=== PATIENT | female | born 1985 | race Two or more races ===

== ENCOUNTER 2019-09-09 06:52 | Inpatient (IN) | payer OTHER ==
[~2019-09-09] VITALS: Ht 157.5 cm; Wt 88.6 kg
[~2019-09-09 06:52] MED LIST: PNV11TAB PO
[2019-09-09] MEDS ORDERED: OXYTOCIN 30U/ 0.9% NaCL 500ML 500 ML IV ONE (08:43)
[2019-09-09] MEDS ORDERED: LACTATED RINGERS 1,000 ML IV SCH (08:43)
[2019-09-09] MEDS ORDERED: D5%-LACTATED RINGERS 1,000 ML IV SCH (08:43)
[2019-09-09] MEDS ORDERED: TERBUTALINE 1 MG/ML, 1ML SQ PRN (09:00)
[2019-09-09] MEDS ORDERED: SODIUM CHLORIDE FLUSH 10ML SYR IVF PRN (09:00)
[2019-09-09] MEDS ORDERED: FENTANYL PF 100 MCG/2ML IVPush PRN (09:00)
[2019-09-09] MEDS ORDERED: TERBUTALINE 1 MG/ML, 1ML IVPush PRN (09:00)
[2019-09-09] MEDS ORDERED: FENTANYL PF 100 MCG/2ML IV PRN (09:00)
[2019-09-09] MEDS ORDERED: TERBUTALINE 1 MG/ML, 1ML ONE (10:19)
[2019-09-09] MEDS ORDERED: LIDOCAINE 1%, 20ML ONE (10:19)
[2019-09-09] MEDS ORDERED: MISOPROSTOL 200 MCG TABLET ONE (10:19)
[2019-09-09] MEDS ORDERED: OXYTOCIN 10 UNITS/ML, 1ML ONE (10:19)
[2019-09-09] MEDS ORDERED: NEWBORN KIT ONE (10:19)
[2019-09-10] MEDS ORDERED: OXYTOCIN 30U/ 0.9% NaCL 500ML 500 ML IV PRN (01:04)
[2019-09-10] MEDS ORDERED: OXYTOCIN 30U/ 0.9% NaCL 500ML 500 ML ONE ×2 (01:11→19:26)
[2019-09-10] MEDS ORDERED: ONDANSETRON 2MG/ML, 2ML IVPush PRN (02:00)
[2019-09-10] MEDS ORDERED: FENTANYL/BUPIV./NS/PF 250 ML EPIDCONT SCH ×2 (05:29→06:23)
[2019-09-10 05:54] LABS: BASOPHILS # (AUTO) 0.04 x10^3/uL (0-0.1); BASOPHILS % (AUTO) 0 % (0-1); EOSINOPHILS # (AUTO) 0.03 x10^3/uL (0-0.4); EOSINOPHILS % (AUTO) 0 % (1-7); LYMPHOCYTES # (AUTO) 1.57 x10^3/uL (1-3.4); LYMPHOCYTES % (AUTO) 15 % (22-44); MD NO; MEAN CORPUSCULAR HEMOGLOBIN 23.9 pg (27.0-34.8); MEAN CORPUSCULAR VOLUME 74.8 fL (80-100); MEAN PLATELET VOLUME 10.5 fL (7.4-10.4); MONOCYTES # (AUTO) 0.44 x10^3/uL (0.2-0.8); MONOCYTES % (AUTO) 4 % (2-9); NEUTROPHILS # (AUTO) 8.81 x10^3/uL (1.8-6.8); NEUTROPHILS % (AUTO) 81 % (42-75); PLATELET COUNT 206 x10^3/uL (130-400); RED BLOOD COUNT 4.44 x10^6/uL (3.82-5.3); RED CELL DISTRIBUTION WIDTH 15.7 % (9.6-15.2)
[2019-09-10] MEDS ORDERED: FENTANYL PF 100 MCG/2ML ONE ×3 (06:18→16:24)
[2019-09-10] MEDS ORDERED: BUPIVACAINE 0.25% ONE ×3 (06:25→16:24)
[2019-09-10] MEDS ORDERED: NALOXONE 0.4 MG/ML, 1ML IVPush PRN (06:30)
[2019-09-10] MEDS ORDERED: LACTATED RINGERS 1,000 ML IVBOLUS PRN (06:30)
[2019-09-10] MEDS ORDERED: EPHEDRINE 50 MG/ML, 1ML IVPush PRN (06:30)
[2019-09-10] MEDS ORDERED: MISOPROSTOL 200 MCG TABLET PR PRN (19:00)
[2019-09-10] MEDS ORDERED: ACETAMINOPHEN 325 MG TABLET PO PRN (19:00)
[2019-09-10] MEDS ORDERED: SIMETHICONE 80 MG CHEW TAB PO PRN (19:00)
[2019-09-10] MEDS ORDERED: DOCUSATE 100 MG CAPSULE PO PRN (19:00)
[2019-09-10] MEDS ORDERED: HYDROcodone/APAP 5/325 TABLET PO PRN ×2 (19:00)
[2019-09-10] MEDS ORDERED: METHYLERGONOVINE 0.2 MG/ML IM PRN (19:00)
[2019-09-10] MEDS ORDERED: ONDANSETRON 2MG/ML, 2ML IV PRN (19:00)
[2019-09-10] MEDS ORDERED: IBUPROFEN 600 MG TABLET PO PRN (19:00)
[2019-09-10] MEDS ORDERED: CARBOPROST TROMETHAMINE 250 MCG/ML, 1ML IM PRN (19:00)
[2019-09-10] MEDS ORDERED: OXYTOCIN 10 UNITS/ML, 1ML IM PRN (19:00)
[2019-09-10] MEDS ORDERED: BISACODYL 10 MG SUPP PR PRN (19:00)
[2019-09-10] MEDS: OXYTOCIN 30U/ 0.9% NaCL 500ML 500 ML IV SCH (21:15)
[2019-09-10 21:16] VITALS: BP 110/72
[2019-09-10] MEDS: LACTATED RINGERS 1,000 ML IV SCH (22:23)
[2019-09-11 01:30] VITALS: BP 94/60
[2019-09-11] MEDS: OXYTOCIN 30U/ 0.9% NaCL 500ML 500 ML IV SCH ×3 (04:48→22:19)
[2019-09-11 04:50] VITALS: BP 97/64
[2019-09-11] MEDS: LACTATED RINGERS 1,000 ML IV SCH ×3 (06:23→22:19)
[2019-09-11 06:24] LABS: BASOPHILS # (AUTO) 0.03 x10^3/uL (0-0.1); BASOPHILS % (AUTO) 0 % (0-1); EOSINOPHILS # (AUTO) 0.06 x10^3/uL (0-0.4); EOSINOPHILS % (AUTO) 0 % (1-7); LYMPHOCYTES # (AUTO) 1.78 x10^3/uL (1-3.4); LYMPHOCYTES % (AUTO) 11 % (22-44); MD NO; MEAN CORPUSCULAR HEMOGLOBIN 23.9 pg (27.0-34.8); MEAN CORPUSCULAR HGB CONC 31.9 g/dL (32.4-35.8); MEAN CORPUSCULAR VOLUME 74.9 fL (80-100); MEAN PLATELET VOLUME 10.4 fL (7.4-10.4); MONOCYTES # (AUTO) 0.98 x10^3/uL (0.2-0.8); MONOCYTES % (AUTO) 6 % (2-9); NEUTROPHILS # (AUTO) 12.77 x10^3/uL (1.8-6.8); NEUTROPHILS % (AUTO) 82 % (42-75); PLATELET COUNT 171 x10^3/uL (130-400); RED BLOOD COUNT 4.14 x10^6/uL (3.82-5.3); RED CELL DISTRIBUTION WIDTH 15.9 % (9.6-15.2)
[2019-09-11 07:20] VITALS: BP 97/62
[2019-09-11] MEDS: PRENATAL VIT/IRON/FA 1 EACH TABLET PO SCH (09:55)
[2019-09-11] MEDS ORDERED: RHOGAM FROM BLOOD BANK 1 NOTE EA IM/IV ONE (11:30)
[2019-09-11 12:10] VITALS: BP 111/70
[2019-09-11 16:25] VITALS: BP 111/67
[2019-09-11 20:30] VITALS: BP 105/55
[2019-09-12] MEDS: LACTATED RINGERS 1,000 ML IV SCH (04:29)
[2019-09-12 07:50] VITALS: BP 102/66
[2019-09-12] MEDS: PRENATAL VIT/IRON/FA 1 EACH TABLET PO SCH (08:08)
[2019-09-12] MEDS ORDERED: IBUP-1222 PO (08:40)
[2019-09-12] MEDS ORDERED: SENN-88 PO (08:41)
== END 2019-09-12 10:00 | disposition home or self-care (01) | DRG 807 ==
LOC: LDOP 06:52 → LDIP 07:54 → 2NW 09-10 21:05
PROVIDERS: ADMIT Obstetrics & Gynecology; ATTEND Obstetrics & Gynecology
PROC: 10E0XZZ Delivery of Products of Conception, External Approach (ICD-10-PCS; principal; 2019-09-10)
PROC: 0HQ9XZZ Repair Perineum Skin, External Approach (ICD-10-PCS; 2019-09-10)
PROC: 3E0R3BZ Introduction of Anesthetic Agent into Spinal Canal, Percutaneous Approach (ICD-10-PCS; 2019-09-10)
PROC: 00HU33Z Insertion of Infusion Device into Spinal Canal, Percutaneous Approach (ICD-10-PCS; 2019-09-10)
DX: O77.0 Labor and delivery complicated by meconium in amniotic fluid (principal); Z37.0 Single live birth; O26.893 Other specified pregnancy related conditions, third trimester; O70.0 First degree perineal laceration during delivery; Z3A.39 39 weeks gestation of pregnancy; Z67.41 Type O blood, Rh negative
CPT/HCPCS: 36415; 82803; 85025; 85461; 86592; 86850; 86900; G0378; J2790; J2590; J3010; J7120